=== PATIENT | female | born 1940 | race Two or more races ===

== ENCOUNTER 2024-03-14 15:45 | Emergency (ER) | payer BC, OTHER ==
[~2024-03-14] VITALS: Ht 165.1 cm; Wt 102.5 kg
[2024-03-14] MEDS ORDERED: KAPSPARGO SPRIN25 MG PO (16:00)
[2024-03-14 19:05] LABS: URINE APPEARANCE Clear; URINE BILIRRUBIN Negative (NEGATIVE); URINE BLOOD Negative; URINE COLOR Yellow; URINE GLUCOSE Negative (NEGATIVE); URINE KETONE Negative (NEGATIVE); URINE LEUKOCYTE Negative; URINE NITRATE Negative; URINE PROTEIN Negative (NEGATIVE); URINE UROBILINOGEN 0.2 E.U./dl
[2024-03-14 19:07] LABS: URINE BACTERIA 943.6 uL (0.0-1933); URINE RBC 11.1 uL (0.0-20.8); URINE WBC 2.6 uL (0.0-23.2)
[2024-03-14 19:07] LABS: HEMATOCRIT 42.3 % (36.0-45.00); HEMOGLOBIN 14.2 g/dL (12.0-15.00); MEAN CELL VOLUME 88.8 fL (80.00-100.00); MEAN CORPUSCULAR HEMOGLOBIN 29.7 pg (27.00-32.0); MEAN CORPUSCULAR HGB CONC 33.5 g/dl (32.0-36.0); PLATELET COUNT 251 K/uL (150-450); RED BLOOD COUNT 4.77 M/uL (4.00-6.00); RED CELL DISTRIBUTION WIDTH 14.1 % (11.5-14.5)
[2024-03-14 19:15] LABS: URINE CAST 0.44 uL (0.0-1.40)
[2024-03-14 19:41] LABS: ALBUMIN 3.8 gm/dL (3.4-5.0); BILIRUBIN TOTAL 0.3 mg/dL (0.3-1.2); CALCIUM 9.8 mg/dL (8.5-10.1); CREATININE SERUM 0.9 mg/dL (0.55-1.02); GFR 59.8; GLOBULINA 3.9 G/DL (2.4-3.5); POTASSIUM 4.19 mEq/L (3.5-5.1); TOTAL PROTEIN 7.7 gm/dL (6.4-8.2)
[2024-03-14] MEDS ORDERED: BACLOFEN10 MG PO (20:12)
[2024-03-14] MEDS ORDERED: ZITHROMAX500 MG PO (20:12)
[2024-03-14] MEDS ORDERED: TUSSIN DM LIQU118 ML PO (20:12)
[2024-03-14] MEDS ORDERED: KETOROLAC TROMETHAMINE 30 MG VIAL IV ONE (20:15)
[2024-03-14] MEDS ORDERED: KETOROLAC TROMETHAMINE 60 MG VIAL IM ONE (20:24)
== END 2024-03-14 20:29 | disposition home or self-care (01) ==
LOC: ER 15:48
PROVIDERS: Preventive Medicine Public Health & General Preventive Medicine
DX: J00 Acute nasopharyngitis [common cold] (principal); M54.16 Radiculopathy, lumbar region; R05.9 Cough, unspecified; Z20.822 Contact with and (suspected) exposure to COVID-19; I10 Essential (primary) hypertension